=== PATIENT | female | born 1955 | race Caucasian/White ===

== ENCOUNTER 2024-03-28 09:45 | Outpatient (CLI) | payer MEDICARE ==
[~2024-03-28 09:45] MED LIST: Iopamidol 370 76% 100 ML VIAL ONE
== END 2024-03-28 09:46 | disposition home or self-care (01) ==
LOC: MADCT 09:45
PROVIDERS: ATTEND Family Medicine
DX: R91.8 Other nonspecific abnormal finding of lung field (principal)
CPT/HCPCS: 36415; 71260; 82565; Q9967